=== PATIENT | female | born 1975 | race Caucasian/White ===

== ENCOUNTER → 2017-08-28 | Outpatient (CLI) | payer BC | LOC: LAB EV 16:20 | DX: R07.0 Pain in throat (principal) | CPT/HCPCS: 87070 ==

== ENCOUNTER → 2018-10-30 | Outpatient (CLI) | payer BC ==
[~2018-10-30] MED LIST: HYDCHL25; SYNTHROID25 MCG PO
[2018-11-01 02:08] LABS: HIV SCREEN 4TH GENERATION WRFX Non Reactive (Non Reactive)
== END | disposition home or self-care (01) ==
LOC: LAB EV 15:30 → LAB SHORT 15:30
PROVIDERS: Family Medicine
DX: Z20.9 Contact with and (suspected) exposure to unspecified communicable disease (principal)
CPT/HCPCS: 86803; 87389

== ENCOUNTER → 2018-12-14 | Outpatient (CLI) | payer OTHER, BC ==
[2018-12-14 12:39] LABS: Alanine Aminotransfer (ALT/SGP 24 U/L (12-78); Albumin, Blood 3.9 g/dL (3.4-5.0); Albumin/Globulin Ratio 1.4 (0.8-1.8); Alk Phos 44 U/L (40-126); Anion Gap 7 mmol/L (6-16); Aspartate Aminotrans (AST/SGOT 18 U/L (12-37); Bilirubin, Total 1.6 mg/dL (0.1-1.0); Blood Urea Nitrogen 10 mg/dL (8-24); CHOL/HDL RATIO 3.2; CO2, Blood 28 mmol/L (21-32); Calcium, Blood 9.2 mg/dL (8.5-10.1); Chloride, Blood 103 mmol/L (98-108); Cholesterol 189 mg/dL (50-200); Creatinine, Blood 0.83 mg/dL (0.40-1.00); Globulin, Blood 2.8 g/dL (2.2-4.0); Glomerular Filtration Rate >60 (60-); Glucose, Blood 94 mg/dL (70-99); HDL Cholesterol 60 mg/dL (>39); LDL/HDL RATIO 1.9; Low Density Lipoprotein Chol 113 mg/dL (<110); Potassium, Blood 3.7 mmol/L (3.5-5.5); Sodium, Blood 138 mmol/L (136-145); Thyroid Stimulating Hormone 4.786 uIU/mL (0.360-4.800); Total Protein, Blood 6.7 g/dL (6.4-8.2); Triglycerides 79 mg/dL (30-160); Very Low Density Lipoprot Chol 15 mg/dL (6-32)
[2018-12-16 06:06] LABS: HIV SCREEN 4TH GENERATION WRFX Non Reactive (Non Reactive)
== END ==
LOC: LAB EV 11:08 → LAB SHORT 11:08
PROVIDERS: General Practice; Nurse Practitioner Family
DX: Z00.00 Encounter for general adult medical examination without abnormal findings (principal); E03.9 Hypothyroidism, unspecified; Z20.9 Contact with and (suspected) exposure to unspecified communicable disease
CPT/HCPCS: 36415; 80053; 80061; 84443; 87389

== ENCOUNTER → 2019-04-15 | Outpatient (CLI) | payer BC ==
[2019-04-15 08:38] LABS: BASOPHILS ABSOLUTE AUTO 0.08 K/mm3 (0.00-0.23); BASOPHILS PERCENT AUTO 1 % (0-2); EOSINOPHILS ABSOLUTE AUTO 0.21 K/mm3 (0.00-0.68); EOSINOPHILS PERCENT AUTO 3 % (0-6); Hematocrit 40.1 % (33.0-51.0); Hemoglobin 13.9 g/dL (11.5-16.0); IMMATURE GRAN ABSOLUTE AUTO 0.03 K/mm3 (0.00-0.10); IMMATURE GRAN PERCENT AUTO 1 % (0-1); LYMPHOCYTES ABSOLUTE AUTO 2.47 K/mm3 (0.84-5.20); LYMPHOCYTES PERCENT AUTO 38 % (21-46); MONOCYTES PERCENT AUTO 6 % (4-13); Mean Corpuscular HGB 31.3 pg (26.0-34.0); Mean Corpuscular HGB Conc 34.7 g/dL (31.5-36.5); Mean Corpuscular Volume 90 fL (80-100); Mean Platelet Volume 9.2 fL (9.1-12.4); NEUTROPHILS ABSOLUTE AUTO 3.36 K/mm3 (1.96-9.15); NEUTROPHILS PERCENT AUTO 51 % (41-73); Platelet Count 433 K/mm3 (150-400); RDW Coefficient Variation 11.9 % (11.7-14.2); RDW Standard Deviation 39.4 fL (35.1-46.3); Red Blood Cell Count 4.44 M/mm3 (3.80-5.20); White Blood Cell Count 6.55 K/mm3 (4.00-11.30)
[2019-04-15 08:50] LABS: Anion Gap 9 mmol/L (6-16); Blood Urea Nitrogen 12 mg/dL (8-24); Bun/Creatinine Ratio 13.8 (12.0-20.0); CO2, Blood 26 mmol/L (21-32); Chloride, Blood 103 mmol/L (98-108); Creatinine, Blood 0.87 mg/dL (0.40-1.00); Glomerular Filtration Rate >60 (60-); Glucose, Blood 98 mg/dL (70-99); Potassium, Blood 3.5 mmol/L (3.5-5.5); Sodium, Blood 138 mmol/L (136-145)
[2019-04-15 08:51] LABS: Troponin I <0.017 ng/mL (0.000-0.040)
== END ==
LOC: LAB EV 08:33 → LAB SHORT 08:33
PROVIDERS: Family Medicine
DX: R07.9 Chest pain, unspecified (principal)
CPT/HCPCS: 80048; 84484; 85025; 85379

== ENCOUNTER 2021-06-16 11:51 | Emergency (ER) | payer OTHER, BC ==
[~2021-06-16] VITALS: Ht 147.3 cm; Wt 59.0 kg
== END 2021-06-16 13:15 | disposition home or self-care (01) ==
LOC: ER 11:51
DX: S46.912A Strain of unspecified muscle, fascia and tendon at shoulder and upper arm level, left arm, initial encounter (principal); X58.XXXA Exposure to other specified factors, initial encounter
CPT/HCPCS: 73030; 99283-25

== ENCOUNTER 2024-04-23 19:04 | Observation (INO) | payer OTHER ==
[~2024-04-23] VITALS: Ht 147.3 cm; Wt 59.0 kg
[2024-04-23 19:28] LABS: Source, Urine Clean Catch
[2024-04-23 19:31] LABS: Appearance, Urine Clear (Clear); Bilirubin, Urine Neg (Neg); Blood, Urine Neg (Neg); Color, Urine Pale Yellow (P-Yellow); Glucose Qualitative, Urine Neg (Neg); Ketones, Urine Neg (Neg); Leukocyte Esterase, Urine Neg (Neg); Nitrite, Urine Neg (Neg); Protein, Urine Neg (Neg); Specific Gravity, Urine 1.015 (1.003-1.022); Urobilinogen, Urine NORM (Normal)
[2024-04-23 19:42] LABS: BASOPHILS ABSOLUTE AUTO 0.09 K/mm3 (0.00-0.23); BASOPHILS PERCENT AUTO 1 % (0-2); EOSINOPHILS ABSOLUTE AUTO 0.21 K/mm3 (0.00-0.68); EOSINOPHILS PERCENT AUTO 2 % (0-6); Hematocrit 38.5 % (33.0-51.0); Hemoglobin 13.4 g/dL (11.5-16.0); IMMATURE GRAN ABSOLUTE AUTO 0.07 K/mm3 (0.00-0.10); IMMATURE GRAN PERCENT AUTO 1 % (0-1); LYMPHOCYTES ABSOLUTE AUTO 3.34 K/mm3 (0.84-5.20); LYMPHOCYTES PERCENT AUTO 36 % (21-46); MONOCYTES ABSOLUTE AUTO 0.43 K/mm3 (0.16-1.47); MONOCYTES PERCENT AUTO 5 % (4-13); Mean Corpuscular HGB 31.6 pg (26.0-34.0); Mean Corpuscular HGB Conc 34.8 g/dL (31.5-36.5); Mean Corpuscular Volume 91 fL (80-100); Mean Platelet Volume 8.8 fL (9.1-12.4); NEUTROPHILS ABSOLUTE AUTO 5.13 K/mm3 (1.96-9.15); NEUTROPHILS PERCENT AUTO 55 % (41-73); Platelet Count 435 K/mm3 (150-400); RDW Coefficient Variation 12.1 % (11.7-14.2); RDW Standard Deviation 40.1 fL (35.1-46.3); Red Blood Cell Count 4.24 M/mm3 (3.80-5.20); White Blood Cell Count 9.27 K/mm3 (4.00-11.30)
[2024-04-23 19:55] LABS: Albumin/Globulin Ratio 1.3 (0.8-1.8); Bilirubin, Total 1.3 mg/dL (0.1-1.0); Bun/Creatinine Ratio 22.5 (12.0-20.0); Calcium, Blood 9.8 mg/dL (8.5-10.1); Creatinine, Blood 0.71 mg/dL (0.40-1.00); Globulin, Blood 3.1 g/dL (2.2-4.0); Potassium, Blood 3.8 mmol/L (3.5-5.5); Total Protein, Blood 7.1 g/dL (6.4-8.2)
[2024-04-23] MEDS ORDERED: NS 1,000 ML IV SCH ×2 (21:25→22:50)
[2024-04-23] MEDS ORDERED: Morphine Sulfate 4 MG/1 ML Injection IV ONE (21:25)
[2024-04-23] MEDS ORDERED: Ketorolac Tromethamine 15mg Vial IV ONE (21:25)
[2024-04-23] MEDS ORDERED: Ondansetron HCl 2 MG / ML 2ML Vial IV PRN (22:50)
[2024-04-23] MEDS ORDERED: Ketorolac Tromethamine 15mg Vial IV PRN (22:50)
[2024-04-24] VITALS (17 sets, daily range): BP systolic 117–169; BP diastolic 75–110
[2024-04-24] MEDS ORDERED: Morphine Sulfate 4 MG/1 ML Injection IV SCH
[2024-04-24] MEDS ORDERED: Ampicillin Sod/Sulbactam Sod 3 GM in NS 100 ML IV SCH
[2024-04-24] MEDS ORDERED: THYR60 PO (00:01)
[2024-04-24] MEDS ORDERED: IRBE150 PO (00:04)
[2024-04-24] MEDS ORDERED: 1/2 NS 250ml250 ML (00:05)
[2024-04-24] MEDS ORDERED: HYDCHL25 PO (00:05)
[2024-04-24] MEDS ORDERED: NS 1,000 ML IV SCH ×2 (00:30→17:20)
--- NOTE | 2024-04-24 06:32 | NUR ---
SHIFT SUMMARY NOC. PT ADMIT FOR ACUTE APPENDICITIS. PT NPO SINCE 0000. PT MEDICATED FOR PAIN WITH MORPHINE SCHEDULED AND TORADOL PRN. PT REPORTED RELIEF OF SX WITH MEDICATION. PT VOIDING URINE AND INDEPENDENT IN ROOM. A/O X4. BED IN LOWEST POSITION, CALL LIGHT IN REACH.
--- NOTE | 2024-04-24 08:45 | NUR ---
MORNING NOTE ASSUMED CARE AT APPROX 0715. PATIENT ALERT AND ORIENTED X4. COMMUNICATES NEEDS EFFECTIVELY. INDEPENDENT IN ROOM, WITH ALL ADLs. VSS. ABD PAIN TOLERABLE WITH ORDERED MEDICATIONS, 07/22. DENIES N/V/D. ABD TENDER, BOWEL TONES HYPOACTIVE. NPO SINCE MIDNIGHT FOR PROCEDURE TODAY. IVF INFUSING PER EMAR. CALL LIGHT IN REACH.
[2024-04-24] MEDS ORDERED: Ondansetron HCl 2 MG / ML 2ML Vial ONE (15:02)
[2024-04-24] MEDS ORDERED: FentaNYL Citrate 50 MCG/ML 2 ML Injection ONE (15:02)
[2024-04-24] MEDS ORDERED: propofoL 20 ML IV ONE (15:02)
[2024-04-24] MEDS ORDERED: Midazolam HCl 1MG / ML 2ML Vial ONE (15:02)
[2024-04-24] MEDS ORDERED: Rocuronium Bromide 10 MG/ML 5ML Injection IV ONE (15:02)
[2024-04-24] MEDS ORDERED: Dexamethasone Sod Phos 10 MG/ML 1ML VIAL ONE (15:02)
--- NOTE | 2024-04-24 15:15 | NUR ---
PATIENT TRANSFERRED OFF UNIT FOR PROCEDURE
--- NOTE | 2024-04-24 15:15 | NUR ---
INTO SDS VIA [employer]. PT A&OX4-REPORTS 5/10 RIGHT QUADRANT PAIN AND HEADACHE. HISTORY AND ALLERGIES REVIEWED. LUNGS CLEAR NO NOTED SOB. SATS 100% ON RA. NPO STATUS CONFIRMED. CHLORHEXIDINE WIPE X 2 TO ABDOMEN.
[2024-04-24] MEDS ORDERED: Lactated Ringer's 1,000 ML IV SCH (15:25)
--- NOTE | 2024-04-24 15:25 | NUR ---
LEFT WRIST #20 PIV-FLUSHES WELL. DRESSING C/D/I.
[2024-04-24] MEDS ORDERED: Bupivacaine 0.5% HCl 5 MG/ML 30MLVIAL ONE (15:42)
[2024-04-24] MEDS ORDERED: Caffeine 200 MG Tablet PO ONE ×2 (15:50→15:55)
[2024-04-24] MEDS ORDERED: Midazolam HCl 1MG / ML 2ML Vial IV ONE (15:50)
[2024-04-24] MEDS ORDERED: Sugammadex Sodium 200 MG/2ML SDV (100 MG/ML) ONE (16:32)
--- NOTE | 2024-04-24 17:07 | NUR ---
SHIFT SUMMARY PATIENT CURRENTLY OUT OF ROOM FOR PROCEDURE. NO ACUTE CHANGES PRIOR TO TRANSFER. INDEPENDENT IN ROOM - TOOK A SHOWER PRIOR TO PROCEDURE. VSS. PAIN MANAGED PER EMAR. MEDICATED X1 WITH IV ZOFRAN FOR REPORTED NAUSEA, NO VOMITING. VOIDING. IVF DISCONTINUED PRIOR TO TRANSFER FROM UNIT - INFUSING PER EMAR THROUGHOUT THE DAY.
[2024-04-24] MEDS ORDERED: HYDROcodone 5-APAP 325 TAB PO PRN (17:20)
--- NOTE | 2024-04-24 18:01 | NUR ---
TRANSFER TO UNIT PATIENT TRANSFERRED TO UNIT FROM PACU AT APPROX 1750. PATIENT ALERT, ABLE TO STAND AND TRANSFER FROM GURNEY TO BED. COMMUNICATING NEEDS EFFECTIVELY. X3 LAP SITES W/ STERI STRIPS - NO DRAINAGE. REPORTING 01/19 PAIN - MEDICATED PER EMAR WITH SCHEDULED IV MORPHINE. HTN NOTED - SBP 160s, DBP 110s. BASELINE HTN - DID NOT RECEIVE HOME BP MEDICATIONS THIS MORNING. WILL CONTINUE TO MONITOR. ON ROOM AIR, SATs >90%. RR EVEN, UNLABORED. TOLERATING SMALL SNACKS AND SIPS OF WATER. IVF AND IV ABX INFUSING PER EMAR. CALL LIGHT IN REACH. WILL CONTINUE TO MONITOR AND REPORT TO ONCOMING RN.
[2024-04-24] MEDS ORDERED: Norco 5-325 Ta1 EACH PO (18:18)
[2024-04-24] MEDS ORDERED: AMOX-CLAV 875-1 EAC5 PO (18:19)
--- NOTE | 2024-04-24 18:24 | NUR ---
PRESCRIPTION HARD SCRIPTS PROVIDED TO SPOUSE AT BEDSIDE
[2024-04-25 03:55] VITALS: BP 138/79
--- NOTE | 2024-04-25 06:47 | NUR ---
SHIFT SUMMARY NOC. PT POD 1 FOR LAP APPY. LAP SITES X3 C/D/I. PT MEDICATED FOR PAIN PER ORDERS WITH REPORTED RELIEF. PT TOLERATING PO INTAKE AND VOIDING URINE. PT A/O X4 AND CALLS APPROPRIATELY. CALL LIGHT IN REACH.
[2024-04-25 07:44] VITALS: BP 142/92
[2024-04-25 08:02] VITALS: BP 142/92
--- NOTE | 2024-04-25 08:44 | NUR ---
MORNING NOTE ASSUMED CARE AT APPROX 0715. PATIENT ALERT AND ORIENTED X4. COMMUNICATING NEEDS EFFECTIVELY. POD 1 LAP APPENDECTOMY - X3 LAP SITES W/ STERI STRIP DRESSINGS. C/D/I. MANAGING PAIN PER EMAR. REPORTS BELCHING, BUT DENIES FLATULENCE. TOLERATING PO INTAKE. VOIDING. INDEPENDENT IN ROOM - WITH ALL ADLs. CALL LIGHT IN REACH.
[2024-04-25] MEDS ORDERED: HydroCHLOROthiazide 25 mg Tab PO SCH (09:00)
[2024-04-25] MEDS ORDERED: Irbesartan 150 MG Tab PO SCH (09:00)
--- NOTE | 2024-04-25 10:09 | NUR ---
DISCHARGE NOTE NO ACUTE CHANGES SINCE PREVIOUS DOCUMENTATION. X3 LAP SITES REMAIN C/D/I - NO DRAINAGE. PAIN MANAGED WITH PRESCRIBED MEDICATIONS. TOLERATING PO INTAKE. VOIDING. FRIEND PRESENT AT BEDSIDE FOR DISCHARGE EDUCATION - BOTH RECEPTIVE TO EDUCATION AND ASK QUESTIONS NEEDED TO GAIN FURTHER UNDERSTANDING. PERSONAL BELONGINGS PROVIDED TO PATIENTs FRIEND. PATIENT TRANSFERRED OFF UNIT TO PERSONAL VEHICLE VIA WHEELCHAIR AT APPROX 0955.
== END 2024-04-25 10:06 | disposition home or self-care (01) ==
LOC: ER 19:04 → SURS 19:05
PROVIDERS: Student in an Organized Health Care Education/Training Program; Surgery; ADMIT Surgery
PROC: 0DTJ4ZZ Resection of Appendix, Percutaneous Endoscopic Approach (ICD-10-PCS; principal; 2024-04-24 13:00)
DX: K35.80 Unspecified acute appendicitis (principal); I10 Essential (primary) hypertension; E03.9 Hypothyroidism, unspecified; Z79.890 Hormone replacement therapy; Z79.899 Other long term (current) drug therapy
CPT/HCPCS: 74177; 76856; 80053; 81003; 84703; 85025; 88304; 96361; 96374-59; 96375; 96376; 99285-25; A9270; G0378; J0295; J1100; J1885; J2250; J2270; J2405; J2704; J3010; J7030; J7120; Q9967